=== PATIENT | female | born 1990 ===

== ENCOUNTER 2024-08-10 00:01 | Inpatient (IN) | payer MEDICAID ==
[~2024-08-10 00:01] MED LIST: Carboprost Tromethamine 250 MCG/1 ML Amp IM PRN; Methylergonovine 0.2 MG/1 ML Amp IM PRN; Misoprostol 100 MCG Tab RECTAL PRN; Ondansetron 4 MG/2 ML SDV IVPUSH PRN; Oxytocin/Normal Saline 30 UNIT/500 ML BAG IV SCH; Sodium Chloride 0.9% 10 ML Syringe FLUSH PRN; Tranexamic Acid 1,000 MG in Sodium Chloride 0.9% 100 ML IV PRN
[2024-08-10] MEDS: Misoprostol 50 MCG (1/2 of 100 MCG) Tab VAG SCH (00:35)
[2024-08-10 00:42] LABS: HEMATOCRIT 31.4 % (37.0-47.0); HEMOGLOBIN 9.8 g/dL (12.0-16.0); MEAN CORPUSCULAR HEMOGLOBIN 24.9 pg (27.0-34.0); MEAN CORPUSCULAR HGB CONC 31.2 g/dL (33.0-35.0); MEAN CORPUSCULAR VOLUME 79.7 fL (80-100); RED BLOOD CELL COUNT 3.94 10^6/uL (4.2-5.4); WHITE BLOOD CELL COUNT,WBC 16.1 10^3/uL (5.0-10.0)
[2024-08-10] MEDS: Famotidine 20 MG/2 ML SDV IVPUSH ONE (00:50)
[2024-08-10] MEDS: Misoprostol 25 MCG (1/4 of 100 MCG) Tab VAG PRN (04:36)
[2024-08-10] MEDS: Lactated Ringers 1,000 ML IV ONE (08:56)
[2024-08-10] MEDS ORDERED: fentaNYL 100 MCG/2 ML SDV ONE (09:17)
[2024-08-10] MEDS ORDERED: Bupivacaine 0.25% 10 ML SDV ONE (09:17)
[2024-08-10] MEDS ORDERED: Ketorolac 30 MG/ML SDV IVPUSH ONE (09:20)
[2024-08-10] MEDS ORDERED: Bupivacaine 0.25% 10 ML SDV NERVRT ONE (09:20)
[2024-08-10] MEDS ORDERED: Ropivacaine 100 ML EPIDUR ONE (09:20)
[2024-08-10] MEDS ORDERED: fentaNYL 100 MCG/2 ML SDV EPIDUR ONE (09:20)
[2024-08-10] MEDS ORDERED: Ondansetron 4 MG/2 ML SDV IV ONE (09:20)
[2024-08-10] MEDS ORDERED: Phenylephrine HCl In 0.9% NaCl 1 MG/10 ML Syringe IVPUSH PRN (09:46)
[2024-08-10] MEDS ORDERED: ePHEDrine 50 MG/ML SDV IVPUSH PRN (09:46)
[2024-08-10] MEDS ORDERED: Ropivacaine 200 MG in Premix Bag 1 BAG EPIDUR SCH (10:00)
[2024-08-10] MEDS: Lactated Ringers 1,000 ML IV SCH (13:11)
[2024-08-10] MEDS: Oxytocin/Normal Saline 30 UNIT/500 ML BAG IV SCH (13:12)
[2024-08-10] MEDS ORDERED: Simethicone 80 MG Tab.Chew PO PRN (15:26)
[2024-08-10] MEDS ORDERED: Sodium Chloride 0.9% 10 ML Syringe FLUSH PRN (15:26)
[2024-08-10] MEDS ORDERED: Witch Hazel Medicated Pads 100/Jar TOP PRN (15:26)
[2024-08-10] MEDS ORDERED: Oxytocin 10 Units/1 ML SDV IM PRN (15:26)
[2024-08-10] MEDS: Docusate Sodium 100 MG Cap PO PRN (20:57)
[2024-08-10] MEDS: Ibuprofen 800 MG Tab PO SCH (20:57)
[2024-08-10] MEDS: Benzocaine/Menthol 20%-0.5% Spray 78 GM Cannister TOP PRN (20:57)
[2024-08-11 06:27] LABS: HEMATOCRIT 29.2 % (37.0-47.0); HEMOGLOBIN 8.8 g/dL (12.0-16.0); MEAN CORPUSCULAR HEMOGLOBIN 24.3 pg (27.0-34.0); MEAN CORPUSCULAR HGB CONC 30.1 g/dL (33.0-35.0); MEAN CORPUSCULAR VOLUME 80.7 fL (80-100); RED BLOOD CELL COUNT 3.62 10^6/uL (4.2-5.4); WHITE BLOOD CELL COUNT,WBC 17.8 10^3/uL (5.0-10.0)
[2024-08-11] MEDS: Prenatal Multivitamin with Calcium/Folic Acid/Iron Tab PO SCH (10:07)
[2024-08-11] MEDS: Ferrous Sulfate 325 MG Tab PO SCH (10:07)
[2024-08-11] MEDS: Acetaminophen 325 MG Tab PO PRN (10:09)
[2024-08-11] MEDS: Lidocaine 1% 30 ML SDV INJECT ONE (14:43)
[2024-08-11] MEDS: Measles, Mumps & Rubella Vaccine 0.5 ML SDV SUBCUT ONE (15:17)
[2024-08-11] MEDS: Diphtheria,Pertussis(Acell),Tetanus Vaccine 0.5 ML Syringe IM ONE (15:17)
== END 2024-08-11 18:00 | disposition home or self-care (01) | DRG 806 ==
LOC: DL.OB 00:01 → OBSVTOIN 15:13 → DL.OB 15:13
PROVIDERS: ADMIT Family Medicine; ATTEND Family Medicine
PROC: 10E0XZZ Delivery of Products of Conception, External Approach (ICD-10-PCS; principal; 2024-08-10)
PROC: 0KQM0ZZ Repair Perineum Muscle, Open Approach (ICD-10-PCS; 2024-08-10)
PROC: 10907ZC Drainage of Amniotic Fluid, Therapeutic from Products of Conception, Via Natural or Artificial Opening (ICD-10-PCS; 2024-08-10)
PROC: 3E0R3BZ Introduction of Anesthetic Agent into Spinal Canal, Percutaneous Approach (ICD-10-PCS; 2024-08-10)
PROC: 00HU33Z Insertion of Infusion Device into Spinal Canal, Percutaneous Approach (ICD-10-PCS; 2024-08-10)
DX: O98.42 Viral hepatitis complicating childbirth (principal); D62 Acute posthemorrhagic anemia; Z37.0 Single live birth; B18.2 Chronic viral hepatitis C; O99.02 Anemia complicating childbirth; O70.1 Second degree perineal laceration during delivery; Z3A.39 39 weeks gestation of pregnancy; Z82.71 Family history of polycystic kidney; Z84.89 Family history of other specified conditions
CPT/HCPCS: 36415; 51702; 59409; 85027; A9270-GY; J0665; J1885; J2405; J2590; J2795; J3010; J7120